=== PATIENT | male | born 1960 | race African-American/Black ===

== ENCOUNTER 2016-11-22 09:51 | Emergency (ER) | payer MEDICAID ==
[~2016-11-22] VITALS: Ht 182.9 cm; Wt 86.2 kg
[2016-11-22 09:57] VITALS: BP 137/80
[2016-11-22] MEDS ORDERED: TAMSULOSIN HCL0.4 MG ORAL (10:03)
[2016-11-22] MEDS ORDERED: Ketorolac 60mg Inj IM ONE (10:45)
--- NOTE | 2016-11-22 10:46 | Emergency Room Report ---
History of Present Illness General Chief Complaint: Pain Source: Patient Present Illness HPI Patient states that last week he noticed that his left knee became swollen and painful. 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 He does not kneel on his knees. He states a couple weeks ago he had similar symptoms that resolved spontaneously. He states that he attempted to go back to work today and continues to have swelling and knee pain. He denies redness, warmth, fever, chills, bodyaches or other symptoms. He has no other complaints. There was no trauma or specific injury. He denies weakness or tingling or numbness. Allergies: Coded Allergies: No Known Allergies (Unverified , 11/22/16) Patient History Past Medical History: see triage record, other - BPH Reviewed Nursing Documentation: PMH: Agreed, PSxH: Agreed Nursing Documentation-PMH Past Medical History: No History, Except For Review of Systems All Other Systems: negative except mentioned in HPI Physical Exam Vital Signs Date Time Temp Pulse Resp B/P Pulse Ox O2 Delivery O2 Flow Rate FiO2 11/22/16 09:57 97.5 54 14 137/80 99 Room Air Sp02 EP Interpretation: reviewed, normal General Appearance: no apparent distress, alert, GCS 15, non-toxic Head: normocephalic, atraumatic Eyes: bilateral eye PERRL, bilateral eye normal inspection ENT: hearing grossly normal, normal pharynx, no angioedema, normal voice Neck: full range of motion, supple/symm/no masses Respiratory: no respiratory distress, no retraction, no accessory muscle use, speaking full sentences Cardiovascular #1: normal inspection, no edema Gastrointestinal: normal inspection, non-distended Rectal: deferred Musculoskeletal: back normal, normal range of motion, swelling - Left knee swelling with joint effusion. No erythema or warmth. Neurologic: alert, oriented x3, responsive, motor strength/tone normal, sensory intact, speech normal Psychiatric: judgement/insight normal, memory normal, mood/affect normal, no suicidal/homicidal ideation Skin: normal color, no rash, warm/dry, well hydrated Medical Decision Making Diagnostic Impression: Primary Impression: Effusion of knee joint, left ER Course This patient has a joint effusion of the left knee. Likely has an underlying arthritis or meniscal injury. He has repetitive use and bending of his knee. The swelling is not warm or erythematous. The patient has no systemic symptoms. I do not suspect a septic joint. Therefore, I did not do an arthrocentesis. Also, the patient has a history of recurrent knee effusions with spontaneous resolution. The patient was given Toradol IM. He is also treated with an Nigel wrap and crutches. I will have this patient followup with his [facility] clinic. I educated him that he will need further evaluation by an orthopedist. Likely, this patient will need further intervention such as injections or surgical treatment of the left knee. There is evidence of infection or need for further emergency department care. The patient was given return precautions and followup instructions. Last Vital Signs Date Time Temp Pulse Resp B/P Pulse Ox O2 Delivery O2 Flow Rate FiO2 11/22/16 09:57 97.5 14 137/80 99 Room Air 11/22/16 09:57 54 Disposition: HOME, SELF-CARE Condition: Improved Referrals: NON PHYSICIAN (PCP) KOBE STANLEY D.O. Nov 22, 2016 10:46
[2016-11-22] MEDS ORDERED: IBUPROFEN600 MG ORAL (10:49)
[2016-11-22 11:14] VITALS: BP 167/84
== END 2016-11-22 11:14 | disposition home or self-care (01) ==
LOC: EMR 10:12
DX: M25.462 Effusion, left knee (principal)
CPT/HCPCS: 96372; 99283